=== PATIENT | male | born 2000 | race Caucasian/White ===

== ENCOUNTER 2023-08-17 10:45 | Outpatient (CLI) | payer BC, SELFPAY ==
--- NOTE | ~2023-08-17 | US_ITS ---
EXAMINATION: US soft tissue lower back DATE: 08/17/2023 11:10 INDICATION: Localized swelling, mass and lump, trunk. TECHNIQUE: Multiple grayscale and Doppler ultrasound images of the lower back were obtained. COMPARISON: None FINDINGS: In the right lower back, there is a 1.1 x 1.0 x 0.3 cm subcutaneous mass that is isoechoic to normal subcutaneous fat with similar echotexture, consistent with a lipoma. There is no abnormal m ass in left lower back.. IMPRESSION: 1. 1.1 cm subcutaneous lipoma in right lower back. Reviewed, dictated and finalized at location [facility]. [facility]
== END 2023-08-17 10:46 ==
LOC: GOSHIMG 10:47
PROVIDERS: PCP Physician Assistant Medical; Visit Provider Physician Assistant Medical
DX: D17.1 Benign lipomatous neoplasm of skin and subcutaneous tissue of trunk (principal)
CPT/HCPCS: 76705